=== PATIENT | male | born 1955 | race Caucasian/White ===

== ENCOUNTER 2020-07-17 15:47 | Observation (INO) ==
[2020-07-17 17:27] LABS: Basophils % 0.6 % (0.0-0.8); Eosinophils # 0.2 10*3/uL (0.0-0.87); Eosinophils % 2.7 % (0.00-10.9); Hematocrit 48.3 VOL% (42.0-52.0); Hemoglobin 15.5 GM/DL (14.0-18.0); Immature Granulocytes % 0.4 %; Immature Granulocytes Absolute 0.03 #; Lymphocytes # 2.2 10*3/uL (1.4-4.0); Lymphocytes % 31.4 % (21.2-54.2); Mean Corpuscular HGB Conc 32.1 GM/DL (32-36); Mean Corpuscular Volume 92.5 FL (87-102); Mean Platelet Volume 10.3 FL (9.6-12.0); Monocytes % 11.8 % (1.7-12.7); Neutrophils % 53.1 % (38.7-73.9); Platelet Count 235 T/CUMM (130-400); Red Blood Count 5.22 MC/CUMM (3.8-5.5); Red Cell Distribution Width 12.7 % (9.3-17.3); White Blood Count 7.1 T/CUMM (4-12)
[2020-07-17 17:56] LABS: Albumin 3.9 G/DL (3.4-5.0); Bilirubin,Total 0.4 MG/DL (0.2-1.0); Calcium 8.8 MG/DL (8.5-10.1); Osmolality,Calculated 278.5 MOS/KG (273-304); Potassium 3.8 MMOL/L (3.5-5.1); Total Protein 7.2 G/DL (6.4-8.2)
[2020-07-17] MEDS ORDERED: ALUM/MAG/SIMETH/LIDO VISC 1:1 30 ML BOTTLE PO STA (19:37)
[2020-07-17] MEDS ORDERED: NITROGLYCERIN 2% OINT 1 INCH/GM PACK TOP STA (19:37)
[2020-07-17] MEDS ORDERED: ASPIRIN 325 MG TABLET PO STA (19:37)
[2020-07-17] MEDS ORDERED: ENOXAPARIN 100 MG/ML SYRINGE SUBCUT STA (19:37)
[2020-07-17] MEDS ORDERED: ONDANSETRON 4 MG/2 ML VIAL IV STA (19:37)
[2020-07-17] MEDS ORDERED: MORPHINE 4 MG/1 ML VIAL IV STA (19:37)
[2020-07-17] MEDS ORDERED: diphenhydrAMINE 50 MG/1 ML VIAL ONE (20:05)
[2020-07-17] MEDS ORDERED: methylPREDNISolone SOD SUC 125 MG/2 ML VIAL ONE (20:05)
[2020-07-17] MEDS ORDERED: FAMOTIDINE 20 MG/2 ML VIAL IV ONE ×2 (20:06→20:07)
[2020-07-17] MEDS ORDERED: ACETAMINOPHEN 325 MG TABLET PO PRN (20:32)
[2020-07-17] MEDS ORDERED: DEXTROSE 50% 25 GM/50 ML VIAL IV PRN (20:32)
[2020-07-17] MEDS ORDERED: GLUCAGON 1 MG VIAL IM PRN (20:32)
[2020-07-17] MEDS ORDERED: POTASSIUM CHLORIDE 20 MEQ TABLET PO PRN (20:32)
[2020-07-17] MEDS ORDERED: NITROGLYCERIN SL 0.4 MG TABLET SL PRN (20:32)
[2020-07-17] MEDS ORDERED: FAMOTIDINE 20 MG/2 ML VIAL IV STA (20:33)
[2020-07-17] MEDS ORDERED: diphenhydrAMINE 50 MG/1 ML VIAL IV STA (20:33)
[2020-07-17] MEDS ORDERED: methylPREDNISolone SOD SUC 125 MG/2 ML VIAL IV STA (20:33)
[2020-07-17] MEDS ORDERED: hydrALAZINE 20 MG/1 ML VIAL IV PRN (20:38)
[2020-07-17 21:31] LABS: Troponin I < 0.015 NG/ML (0.00-0.045)
[2020-07-18 00:46] LABS: Troponin I < 0.015 NG/ML (0.00-0.045)
[2020-07-18 04:47] LABS: Troponin I < 0.015 NG/ML (0.00-0.045)
[2020-07-18 04:54] LABS: Risk Ratio 3.55; Thyroid Stimulating Hormone 0.889 uIU/ml (0.358-3.74)
[2020-07-18] MEDS ORDERED: METOPROLOL SUCCINATE XL 25 MG TABLET PO SCH (09:00)
[2020-07-18] MEDS ORDERED: ASPIRIN EC 325 MG TABLET PO SCH (09:00)
[2020-07-18] MEDS ORDERED: ENOXAPARIN 120 MG/0.8 ML SYRINGE SUBCUT SCH (09:00)
[2020-07-18] MEDS ORDERED: PANTOPRAZOLE 40 MG VIAL IV SCH (09:00)
[2020-07-18] MEDS ORDERED: lisinopriL 2.5 MG TABLET PO SCH (09:00)
[2020-07-18] MEDS ORDERED: BISOPROLOL 5 MG TABLET PO SCH (10:27)
[2020-07-18] MEDS ORDERED: ACETAMINOPHEN 325 MG TABLET PO SCH (10:30)
[2020-07-18 12:28] VITALS: BP 136/71
[2020-07-18] MEDS ORDERED: GABAPENTIN 100 MG CAPSULE PO SCH (15:00)
[2020-07-19] MEDS ORDERED: BISOPROLOL 5 MG TABLET PO SCH (09:00)
== END 2020-07-18 14:28 | disposition home or self-care (01) ==
LOC: N.EDINP 15:47 → N.ED 15:47 → N.EDINP 07-18 14:35
PROVIDERS: ADMIT Internal Medicine; ATTEND Internal Medicine